=== PATIENT | female | born 1995 | race Caucasian/White ===

== ENCOUNTER 2017-10-12 23:05 | Emergency (ER) | payer MEDICAID ==
[2017-10-13 02:00] LABS: URINE BLOOD (Dip) POC Negative (NEGATIVE); URINE GLUCOSE (Dip) POC Negative (NEGATIVE); URINE KETONES (Dip) POC Trace (NEGATIVE); URINE LEUKOCYTE EST (Dip) POC 1+ (NEGATIVE); URINE NITRITE (Dip) POC Negative (NEGATIVE); URINE TOTAL PROTEIN POC 1+ (NEGATIVE)
== END 2017-10-13 02:18 | disposition home or self-care (01) ==
LOC: FTE 23:05
DX: N39.0 Urinary tract infection, site not specified (principal)
CPT/HCPCS: 81003; 99283

== ENCOUNTER 2018-09-19 19:32 | Inpatient (IN) | payer MEDICAID ==
[2018-09-19 21:05] LABS: ADD UMIC YES; UR ASCORBIC ACID 20 mg/dL (NEGATIVE); UR BACTERIA FEW /HPF (NONE SEEN); UR BILIRUBIN (Dip) NEGATIVE (NEGATIVE); UR BLOOD (Dip) NEGATIVE (NEGATIVE); UR CLARITY CLOUDY (CLEAR); UR COLOR YELLOW (YELLOW); UR GLUCOSE (Dip) 1+ mg/dL (NEGATIVE); UR KETONES (Dip) NEGATIVE (NEGATIVE); UR LEUKOCYTE ESTERASE (Dip) 3+ Leu/ul (NEGATIVE); UR NITRITE (Dip) NEGATIVE (NEGATIVE); UR RBC 2 /HPF (0-5); UR SPECIFIC GRAVITY (Dip) 1.014 (1.003-1.030); UR SQUAMOUS EPITHELIAL CELL MODERATE /HPF (FEW); UR TOTAL PROTEIN (Dip) NEGATIVE (NEGATIVE); UR UROBILINOGEN (Dip) NEGATIVE (NEGATIVE); UR WBC 6 /HPF (0-5)
[2018-09-19] MEDS ORDERED: AMPICILLIN 2 GM/NS (PMX) 100 ML (21:56)
[2018-09-19] MEDS ORDERED: OXYTOCIN 30 UNITS/LR 500 ML IV ×3 (22:00)
[2018-09-19] MEDS ORDERED: MISOPROSTOL 200 MCG TAB PR (22:00)
[2018-09-19] MEDS ORDERED: BUTORPHANOL 1 MG INJ IV (22:00)
[2018-09-19] MEDS ORDERED: METHYLERGONOVINE 0.2 MG INJ IM (22:00)
[2018-09-19] MEDS ORDERED: LIDOCAINE 1% (MPF) 30 ML INJ INJ (22:00)
[2018-09-19] MEDS ORDERED: IBUPROFEN 600 MG TAB PO (22:00)
[2018-09-19] MEDS ORDERED: CARBOPROST 250 MCG INJ IM (22:00)
[2018-09-19] MEDS: AMPICILLIN 2 GM/NS (PMX) 100 ML IV (22:26)
[2018-09-19] MEDS: LACTATED RINGER'S 1,000 ML IV (22:26)
[2018-09-19 22:48] LABS: ADD MAN DIFF? NO
[2018-09-19 22:51] LABS: ABNORMAL IP MESSAGE 1; BASOPHILS % 0.3 % (0.0-2.0); EOSINOPHILS # 0.2 10^3/ul (0.0-0.5); EOSINOPHILS % 1.8 % (0.0-7.0); HEMATOCRIT 36.7 % (37.0-47.0); HEMOGLOBIN 12.5 g/dl (12.0-16.0); LYMPHOCYTES # 2.6 10^3/ul (0.8-2.9); LYMPHOCYTES % 25.1 % (15.0-51.0); MEAN CORPUSCULAR HEMOGLOBIN 30.9 pg (29.0-33.0); MEAN CORPUSCULAR HGB CONC 34.1 g/dl (32.0-37.0); MEAN CORPUSCULAR VOLUME 90.6 fl (82.0-101.0); MEAN PLATELET VOLUME 13.5 fl (7.4-10.4); MONOCYTE # 0.9 10^3/ul (0.3-0.9); MONOCYTES % 8.8 % (0.0-11.0); NEUTROPHIL # 6.5 10^3/ul (1.6-7.5); NEUTROPHILS % 63.5 % (39.0-77.0); PLATELET COUNT 174 10^3/UL (140-415); RED BLOOD COUNT 4.05 10^6/ul (4.20-5.40); RED CELL DISTRIBUTION WIDTH 12.8 % (11.5-14.5)
[2018-09-19 22:51] LABS: WHITE BLOOD COUNT 10.3 10^3/ul (4.8-10.8)
[2018-09-19 22:52] LABS: POSITIVE DIFF @See below
[2018-09-19 23:14] LABS: INR 0.81; PROTIME 11.3 Sec (11.9-14.9); PT RATIO 0.9
[2018-09-19 23:15] LABS: PARTIAL THROMBOPLASTIN TIME 26.9 Sec (23.0-35.0)
[2018-09-19 23:48] LABS: HEPATITIS B SURFACE ANTIGEN NEGATIVE (NEGATIVE)
[2018-09-20] MEDS: DEXAMETHASONE 4 MG/ML 5 ML INJ IM ×3 (00:46→23:55)
[2018-09-20] MEDS: AMPICILLIN 1 GM/NS (PMX) 50 ML IV ×5 (02:32→21:56)
[2018-09-20] MEDS: LACTATED RINGER'S 1,000 ML IV ×3 (07:02→19:31)
[2018-09-20 21:21] LABS: RAPID PLASMA REAGIN NONREACTIVE (NR)
[2018-09-21] MEDS: AMPICILLIN 1 GM/NS (PMX) 50 ML IV ×6 (01:44→18:17)
[2018-09-21] MEDS: LACTATED RINGER'S 1,000 ML IV ×3 (02:39→19:48)
[2018-09-21] MEDS: DEXAMETHASONE 4 MG/ML 5 ML INJ IM (12:10)
[2018-09-22] MEDS: BUTORPHANOL 2 MG INJ IV (02:10)
[2018-09-22] MEDS: LACTATED RINGER'S 1,000 ML IV (02:43)
== END 2018-09-22 08:15 | disposition home or self-care (01) | DRG 832 ==
LOC: OBT 19:32 → L-D 19:32 → OBT 21:35 → L-D 21:35
DX: O60.03 Preterm labor without delivery, third trimester (principal); O23.43 Unspecified infection of urinary tract in pregnancy, third trimester; O09.213 Supervision of pregnancy with history of pre-term labor, third trimester; Z3A.35 35 weeks gestation of pregnancy
CPT/HCPCS: 36415; 76815; 81001; 85025; 85610; 85730; 86592; 86850; 86900; 86901; 87081; 87086; 87340

== ENCOUNTER 2018-10-05 20:48 | Inpatient (IN) | payer MEDICAID ==
[2018-10-05] MEDS ORDERED: LACTATED RINGER'S 1,000 ML IV (21:23)
[2018-10-05] MEDS ORDERED: CARBOPROST 250 MCG INJ IM (21:30)
[2018-10-05] MEDS ORDERED: BUTORPHANOL 2 MG INJ IV (21:30)
[2018-10-05] MEDS ORDERED: IBUPROFEN 600 MG TAB PO (21:30)
[2018-10-05] MEDS ORDERED: OXYCODONE/ACETAMINOPHEN (5/325) TAB PO (21:30)
[2018-10-05] MEDS: OXYTOCIN 30 UNITS/LR 500 ML IV ×2 (21:30→22:10)
[2018-10-05] MEDS ORDERED: OXYTOCIN 30 UNITS/LR 500 ML IV (21:30)
[2018-10-05] MEDS ORDERED: MISOPROSTOL 200 MCG TAB PR (21:30)
[2018-10-05] MEDS ORDERED: METHYLERGONOVINE 0.2 MG INJ IM (21:30)
[2018-10-05] MEDS: LIDOCAINE 1% (MPF) 30 ML INJ INJ (21:53)
[2018-10-05 22:42] LABS: ADD MAN DIFF? NO
[2018-10-05 22:44] LABS: WHITE BLOOD COUNT 13.8 10^3/ul (4.8-10.8)
[2018-10-05 22:44] LABS: ABNORMAL IP MESSAGE 1; BASOPHILS % 0.3 % (0.0-2.0); EOSINOPHILS # 0.1 10^3/ul (0.0-0.5); EOSINOPHILS % 0.4 % (0.0-7.0); HEMATOCRIT 37.2 % (37.0-47.0); HEMOGLOBIN 12.5 g/dl (12.0-16.0); LYMPHOCYTES # 4.4 10^3/ul (0.8-2.9); LYMPHOCYTES % 31.8 % (15.0-51.0); MEAN CORPUSCULAR HEMOGLOBIN 30.7 pg (29.0-33.0); MEAN CORPUSCULAR HGB CONC 33.6 g/dl (32.0-37.0); MEAN CORPUSCULAR VOLUME 91.4 fl (82.0-101.0); MEAN PLATELET VOLUME 13.6 fl (7.4-10.4); MONOCYTE # 1.4 10^3/ul (0.3-0.9); NEUTROPHIL # 7.9 10^3/ul (1.6-7.5); NEUTROPHILS % 57.1 % (39.0-77.0); PLATELET COUNT 206 10^3/UL (140-415); POSITIVE DIFF @See below; RED BLOOD COUNT 4.07 10^6/ul (4.20-5.40); RED CELL DISTRIBUTION WIDTH 13.2 % (11.5-14.5)
[2018-10-05 23:02] LABS: INR 0.86; PROTIME 11.8 Sec (11.9-14.9); PT RATIO 0.9
[2018-10-05 23:03] LABS: PARTIAL THROMBOPLASTIN TIME 27.1 Sec (23.0-35.0)
[2018-10-05 23:32] LABS: HEPATITIS B SURFACE ANTIGEN NEGATIVE (NEGATIVE)
[2018-10-06] MEDS: LACTATED RINGER'S 1,000 ML IV* ×4 (00:03→16:03)
[2018-10-06] MEDS: DEXTROSE 5%-LR 1,000 ML IV (00:03)
[2018-10-06] MEDS ORDERED: DEXTROSE 5%-LR 1,000 ML IV (00:03)
[2018-10-06] MEDS ORDERED: DIBUCAINE 1% 30 GM OINT TOP ×2 (00:30)
[2018-10-06] MEDS ORDERED: ZOLPIDEM 5 MG TAB PO ×2 (00:30)
[2018-10-06] MEDS ORDERED: DIPHENHYDRAMINE 50 MG INJ IV ×2 (00:30)
[2018-10-06] MEDS ORDERED: MISOPROSTOL 200 MCG TAB PR ×2 (00:30)
[2018-10-06] MEDS ORDERED: ONDANSETRON 4 MG INJ IV ×2 (00:30)
[2018-10-06] MEDS ORDERED: BENZOCAINE 20% 56 ML SPRAY TOP (00:30)
[2018-10-06] MEDS ORDERED: WITCH HAZEL/GLYCERIN PAD PR (00:30)
[2018-10-06] MEDS ORDERED: OXYCODONE/ASPIRIN (4.88/325) TAB PO ×2 (00:30)
[2018-10-06] MEDS ORDERED: SENNA/DOCUSATE NA (8.6MG/50MG) TAB PO ×2 (00:30)
[2018-10-06] MEDS ORDERED: LANOLIN HPA 1 PKT TOP ×2 (00:30)
[2018-10-06] MEDS ORDERED: ACETAMINOPHEN 325 MG TAB PO ×2 (00:30)
[2018-10-06] MEDS ORDERED: OXYTOCIN 30 UNITS/LR 500 ML IV ×2 (00:30)
[2018-10-06] MEDS ORDERED: METHYLERGONOVINE 0.2 MG INJ IM ×2 (00:30)
[2018-10-06] MEDS ORDERED: CARBOPROST 250 MCG INJ IM ×2 (00:30)
[2018-10-06] MEDS: IBUPROFEN 600 MG TAB PO ×3 (05:45→17:47)
[2018-10-06] MEDS: WITCH HAZEL/GLYCERIN PAD PR (05:45)
[2018-10-06] MEDS: BENZOCAINE 20% 56 ML SPRAY TOP (05:46)
[2018-10-06] MEDS ORDERED: IBUPROFEN 600 MG TAB PO (06:00)
[2018-10-06 08:27] LABS: ADD MAN DIFF? NO
[2018-10-06 08:32] LABS: WHITE BLOOD COUNT 13.5 10^3/ul (4.8-10.8)
[2018-10-06 08:32] LABS: BASOPHILS % 0.3 % (0.0-2.0); EOSINOPHILS # 0.1 10^3/ul (0.0-0.5); EOSINOPHILS % 0.4 % (0.0-7.0); HEMATOCRIT 31.7 % (37.0-47.0); HEMOGLOBIN 10.7 g/dl (12.0-16.0); LYMPHOCYTES # 2.2 10^3/ul (0.8-2.9); LYMPHOCYTES % 16.1 % (15.0-51.0); MEAN CORPUSCULAR HEMOGLOBIN 30.6 pg (29.0-33.0); MEAN CORPUSCULAR HGB CONC 33.8 g/dl (32.0-37.0); MEAN CORPUSCULAR VOLUME 90.6 fl (82.0-101.0); MEAN PLATELET VOLUME 12.8 fl (7.4-10.4); MONOCYTE # 1.1 10^3/ul (0.3-0.9); MONOCYTES % 8.3 % (0.0-11.0); NEUTROPHILS % 74.2 % (39.0-77.0); PLATELET COUNT 168 10^3/UL (140-415); RED CELL DISTRIBUTION WIDTH 12.9 % (11.5-14.5)
[2018-10-06 22:09] LABS: RAPID PLASMA REAGIN NONREACTIVE (NR)
[2018-10-07] MEDS: IBUPROFEN 600 MG TAB PO ×3 (05:59→12:30)
[2018-10-07] MEDS: DIPHTH/TET/ACEL PERTUSS (ADULT) 0.5 ML VIAL IM* (09:30)
[2018-10-07] MEDS: MEASLES,MUMPS,RUBELLA VACCINE INJ SC* (09:31)
== END 2018-10-07 14:42 | disposition home or self-care (01) | DRG 807 ==
LOC: OBT 20:48 → L-D 20:49 → OBT 21:18 → L-D 21:18 → PP1 23:32
PROVIDERS: Obstetrics & Gynecology
PROC: 10E0XZZ Delivery of Products of Conception, External Approach (ICD-10-PCS; principal; 2018-10-05)
PROC: 0UQGXZZ Repair Vagina, External Approach (ICD-10-PCS; 2018-10-05)
PROC: 3E033VJ Introduction of Other Hormone into Peripheral Vein, Percutaneous Approach (ICD-10-PCS; 2018-10-05)
DX: O71.4 Obstetric high vaginal laceration alone (principal); Z37.0 Single live birth; Z3A.37 37 weeks gestation of pregnancy
CPT/HCPCS: 85025; 85610; 85730; 86592; 86850; 86900; 86901; 87340